=== PATIENT | female | born 1945 | race Caucasian/White ===

== ENCOUNTER 2020-08-06 16:17 | Emergency (ER) | payer MEDICARE, OTHER, SELFPAY ==
--- NOTE | 2020-08-06 16:29 | ED.UPPEXIN ---
HPI - Extremity Injury (Upper) General Chief Complaint: Extremity Injury, Upper Stated Complaint: INJURED L FOREARM Time Seen by Provider: 08/06/20 16:29 Source: patient and RN notes reviewed Mode of arrival: ambulatory Limitations: no limitations History of Present Illness HPI narrative: 74-year-old female presents with concern for a wound on her left arm that has not been healing well. Reports she sustained the skin tear 18 days ago when she tripped at home and fell. She denies any musculoskeletal pain. Reports she has been covering the wound with a dressing. Reports the last dressing change was on Sunday, 2 days ago. She denies fever, redness surrounding the wound, swelling surrounding the wound. Denies purulent drainage from the wound. Reports her son is helping her take care of the wound. MD complaint: injury to: left and arm Related Data Allergies Allergy/AdvReac Type Severity Reaction Status Date / Time latex Allergy Mild rash Verified 05/19/20 14:52 Penicillins Allergy Mild Hives Verified 05/19/20 14:52 Review of Systems Review of Systems: Narrative: CONSTITUTIONAL: Denies malaise, chills, sweats, or fever. SKIN: Reports wound on left arm that is nonhealing. MUSCULOSKELETAL: Denies muscle skeletal pain NEUROLOGIC: Denies numbness, weakness. All systems reviewed & are unremarkable except as noted in HPI and below PMFSH Past Medical History Medical History (Updated 08/06/20 @ 17:03 by Letha Greco NP) Asymptomatic bilateral carotid artery stenosis Essential (primary) hypertension Other hyperlipidemia Recurrent major depressive disorder in remission Unspecified asthma, uncomplicated Vitamin D deficiency Social History Social History Smoking status: Former smoker Alcohol intake: current Comments At time of signature, agree with nursing past medical, surgical, social and family history. There is no relevant family history pertinent to the presenting complaint Exam Narrative: Exam Narrative: GENERAL: Well-appearing, well-nourished, and in no acute distress. HEAD: Normocephalic, atraumatic. EYES: PERRLA, conjunctivae clear ENT: Mucous membranes moist. NECK: Supple CHEST: No respiratory distress. Speaks in full sentences. HEART: Regular rate and rhythm. EXTREMITIES: Left upper extremity has grossly normal range of motion, no edema, normal strength and sensation. SKIN: Warm, dry, no rash. 8 cm x 6 cm skin tear with beefy red tissue bed noted to the lateral left forearm without surrounding erythema, induration, edema. No purulent drainage noted. Small amount of bleeding noted due to removing adhered dressing. NEURO: Alert and oriented x3. PSYCH: Normal mood and affect Course Course Emergency Course: At the time of presentation, wound was dressed with ABDs and an Jett bandage. The ABDs were adhered to the wound. The ABDs were saturated with saline, glycerin based soap, let gel for anesthesia and slowly gently removed. Patient was instructed on importance of using nonadherent dressing for wound care. Wound dressed in this clinic with Maite Humphrey Coban. Patient is aware of diagnosis, understands and agrees to treatment plan. Anticipatory guidance given. Patient agrees to follow-up as directed and is aware of reasons to seek care at the emergency department. Portions of this record may have been created with voice recognition software Vital Signs Vital signs: Vital Signs Temperature 97.4 F L 08/06/20 16:30 Pulse Rate 101 H 08/06/20 16:30 Respiratory Rate 20 08/06/20 16:30 Blood Pressure 139/58 L 08/06/20 16:30 Pulse Oximetry 98 08/06/20 16:30 Temperature 97.4 F L 08/06/20 16:30 Pulse Rate 101 H 08/06/20 16:30 Respiratory Rate 20 08/06/20 16:30 Blood Pressure 139/58 L 08/06/20 16:30 Pulse Oximetry 98 08/06/20 16:30 Reviewed. MDM - Extremity Injury (Upper) MDM Narrative Medical decision making narrative
[2020-08-06 16:30] VITALS: BP 139/58; PULSE 101; RESP 20; TEMP 36.3; O2SAT 98
== END 2020-08-06 17:15 | disposition home or self-care (01) ==
PROVIDERS: Emergency Provider Nurse Practitioner; PCP Nurse Practitioner Family
DX: S51.812A Laceration without foreign body of left forearm, initial encounter (principal); W01.0XXA Fall on same level from slipping, tripping and stumbling without subsequent striking against object, initial encounter; Z87.891 Personal history of nicotine dependence; I10 Essential (primary) hypertension; J45.909 Unspecified asthma, uncomplicated; E78.49 Other hyperlipidemia; I25.10 Atherosclerotic heart disease of native coronary artery without angina pectoris
CPT/HCPCS: 99213; A9270; G0463

== ENCOUNTER 2022-01-26 15:38 | Outpatient (CLI) | payer MEDICARE, SELFPAY ==
[2022-01-26 20:06] LABS: Basophils Absolute Auto 0.1 K/mm3 (0.0-0.1); Basophils Percent Auto 0.5 % (0.2-1.2); Eosinophils Absolute Auto 0.3 K/mm3 (0-0.3); Eosinophils Percent Auto 2.6 % (0-4.4); Hematocrit 39.3 % (37.0-47.0); Hemoglobin 12.4 g/dL (12.0-15.0); Immature Granulocyte Absolute 0.05 K/mm3 (0.00-0.031); Immature Granulocyte Percent A 0.4 % (0-0.5); Lymphocytes Absolute Auto 2.29 K/mm3 (0.9-3.2); Lymphocytes Percent Auto 19.6 % (18.3-44.2); Mean Corpuscular HGB Conc 31.6 g/dl (32-36); Mean Corpuscular Hemoglobin 29.6 pg (26-34); Mean Corpuscular Volume 93.8 fl (80-100); Mean Platelet Volume 9.2 fl (7.4-10.4); Monocytes Percent Auto 8.3 % (2.6-8.5); Neutrophils Percent Auto 68.6 % (45.5-73.1); Platelet Count Result 520 k/mm3 (150-375); Red Blood Count 4.19 M/mm3 (4.2-5.4); Red Cell Distribution Width 14.7 % (11.5-14.5); White Blood Count 11.7 K/mm3 (4.5-10.0)
[2022-01-26 20:43] LABS: Alanine Aminotransferase 45 U/L (6-35); Albumin Level 4.3 g/dL (3.5-5.1); Alkaline Phosphatase 113 U/L (38-126); Anion Gap 14 mmol/L (8-16); Aspartate Amino Transferase 30 U/L (14-36); Bilirubin,Total 0.5 mg/dL (0.2-1.3); Blood Urea Nitrogen 17 mg/dL (7-17); Carbon Dioxide 23 mmol/L (22-30); Chloride 103 mmol/L (98-107); Cholesterol 197 mg/dL (0-200); Estimated Glomerular Filt Rate > 60; Glucose 110 mg/dL (65-110); HDL Direct 53 mg/dL; Potassium 4.2 mmol/L (3.4-5.0); Sodium 140 mmol/L (137-145); Triglycerides 76 mg/dL (<150)
[2022-01-26 20:54] LABS: LDL Cholesterol Direct 99 mg/dL
== END 2022-01-26 15:39 | disposition home or self-care (01) ==
LOC: ANHGOSHLAB 15:41
PROVIDERS: PCP Nurse Practitioner Family; Visit Provider Nurse Practitioner Family
DX: I10 Essential (primary) hypertension (principal); E78.5 Hyperlipidemia, unspecified
CPT/HCPCS: 36415; 80053; 80061; 85025

== ENCOUNTER 2022-09-20 16:47 | Outpatient (CLI) | payer MEDICARE, SELFPAY ==
--- NOTE | 2022-09-21 10:12 | PCRCNOTE ---
Paper documentation exists on this patient due to [employer] System downtime on 09/20/22 from [id number] to [id number]
--- NOTE | 2022-09-21 12:45 | WPDPFTINT ---
PFT Procedure Performed PFT Procedure Performed Spirometry with Pre/Post Bronchodilator Plethysmography (Lung Vol) Diffusing Cap (DLCO) Flow Vol Loop PFT Interpretation Lung volumes were measured with the body plethysmography method. The diminished uiaptc-xqt-vbaxq lung volumes are indicative of restrictive respiratory disease. Spirometry showed diminished expiratory flow rates and a normal FEV1 to FVC ratio of 69%, consistent with restrictive respiratory disease. Following administration of a bronchodilator there was borderline increase in the FEV1. Lung diffusion capacity is severely reduced at 39% predicted. The flow-volume loop is consistent with restrictive respiratory disease. Impression: Moderate restrictive respiratory disease. Severely reduced lung diffusion capacity.
--- NOTE | 2022-09-21 12:47 | WPDSIXMINUTE ---
Six Minute Walk Procedure Procedure Performed Pulmonary Stress Test (6 min walk) Six Minute Walk Six Minute Walk: This 6 minute walk test was carried out with the patient breathing ambient air. The pre-walk baseline oxyhemoglobin saturation was 95%. The patient walked over 152 m with no stops during testing. During the walk the oxyhemoglobin saturation remained higher than 91%. Impression: No evidence of oxyhemoglobin desaturation on this test.
== END 2022-09-20 16:48 | disposition home or self-care (01) ==
LOC: ANHPFT 16:48
PROVIDERS: PCP Nurse Practitioner Family; Visit Provider Internal Medicine Critical Care Medicine
DX: J45.909 Unspecified asthma, uncomplicated (principal); R94.2 Abnormal results of pulmonary function studies
CPT/HCPCS: 94060; 94618; 94726; 94729

== ENCOUNTER 2022-10-02 11:55 | Outpatient (CLI) | payer MEDICARE, SELFPAY ==
--- NOTE | ~2022-10-02 | XR_ITS ---
XR chest 2V DATE: 10/02/2022 12:36 INDICATION: Asthma TECHNIQUE: PA and lateral views COMPARISON: 11/27/2011 CT pulmonary scan FINDINGS: Mild cardiomegaly, left ventricular enlargement. Aortic calcification and unfolding. No hil ar or mediastinal enlargement. Mild discoid atelectasis or scarring in the lower lung zones, greater on the left. No pulmonary conso lidation, pleural effusion, pulmonary vascular congestion or pneumothorax is detected. Osteopenia. Bilateral chronic rotator cuff atrophy. Degenerative spurring of the thoracic and lumbar spine. IMPRESSION: Mild bibasilar discoid atelectasis or scarring, greater on the left Mild cardiomegaly with left ventricular enlargement Aortic atherosclerosis Osteopenia Degenerative changes of the thoracic and lumbar spine Bilateral chronic rotator cuff atrophy Reviewed, dictated and finalized at location A.
[2022-10-02 12:38] LABS: Basophils Percent Auto 0.3 % (0.2-1.2); Eosinophils Absolute Auto 0.3 K/mm3 (0-0.3); Hematocrit 34.5 % (37.0-47.0); Hemoglobin 10.4 g/dL (12.0-15.0); Immature Granulocyte Absolute 0.06 K/mm3 (0.00-0.031); Immature Granulocyte Percent A 0.4 % (0-0.5); Lymphocytes Absolute Auto 1.59 K/mm3 (0.9-3.2); Lymphocytes Percent Auto 11.2 % (18.3-44.2); Mean Corpuscular HGB Conc 30.1 g/dl (32-36); Mean Corpuscular Volume 96.1 fl (80-100); Mean Platelet Volume 9.7 fl (7.4-10.4); Monocytes Absolute Auto 0.9 K/mm3 (0.1-0.6); Monocytes Percent Auto 6.2 % (2.6-8.5); Neutrophils Absolute Auto 11.4 K/mm3 (1.3-6.7); Neutrophils Percent Auto 79.9 % (45.5-73.1); Platelet Count Result 389 k/mm3 (150-375); Red Blood Count 3.59 M/mm3 (4.2-5.4); Red Cell Distribution Width 15.1 % (11.5-14.5); White Blood Count 14.2 K/mm3 (4.5-10.0)
== END 2022-10-02 11:56 | disposition home or self-care (01) ==
PROVIDERS: PCP Nurse Practitioner Family; Visit Provider Internal Medicine Critical Care Medicine
DX: J45.909 Unspecified asthma, uncomplicated (principal); I70.0 Atherosclerosis of aorta; M85.88 Other specified disorders of bone density and structure, other site; I51.7 Cardiomegaly
CPT/HCPCS: 36415; 71046; 85025

== ENCOUNTER 2022-10-12 13:24 | Outpatient (CLI) | payer MEDICARE, SELFPAY ==
--- NOTE | ~2022-10-12 | CT_ITS ---
EXAMINATION: CT diagnostic chest wo con DATE: 10/12/2022 14:11 INDICATION: Chronic cough TECHNIQUE: Computed tomography (CT) of the chest was performed without intravenous contrast. Automate d exposure control and iterative reconstruction technique were employed. Exam dose: 117.56 mGy-cm to diana exam DLP. COMPARISON: None FINDINGS: Heart size is within normal range. No thoracic aortic aneurysm. Minimal thoracic aortic chary cification. No hilar or mediastinal mass lesion or lymphadenopathy. Prominent discoid atelectasis or scarring in the lower lobes and to a lesser extent the dependent asp ect of the lingula and left upper lobe. No suspicious pulmonary mass lesion is noted. No bronchial ob struction is identified. There is evidence of cholelithiasis. No bile duct or pancreatic duct dilatation is evident. Normal morphology of the adrenal glands. Fusion of C6 and C7 vertebral bodies. Severe degenerative disc disease at C7-T1 and throughout the thoracic and included upper lumbar spine . No suspicious osteolytic or osteoblastic lesions are noted. IMPRESSION: Prominent discoid atelectasis infiltrate or scarring of the lower lobes Cholelithiasis Reviewed, dictated and finalized at Location A. Reviewed, dictated and finalized at location A.
[2022-10-12 15:10] LABS: Basophils Absolute Auto 0.1 K/mm3 (0.0-0.1); Basophils Percent Auto 0.5 % (0.2-1.2); Eosinophils Absolute Auto 0.4 K/mm3 (0-0.3); Eosinophils Percent Auto 3.7 % (0-4.4); Hematocrit 35.9 % (37.0-47.0); Hemoglobin 10.9 g/dL (12.0-15.0); Immature Granulocyte Absolute 0.05 K/mm3 (0.00-0.031); Immature Granulocyte Percent A 0.5 % (0-0.5); Lymphocytes Percent Auto 26.6 % (18.3-44.2); Mean Corpuscular HGB Conc 30.4 g/dl (32-36); Mean Corpuscular Hemoglobin 29.6 pg (26-34); Mean Corpuscular Volume 97.6 fl (80-100); Mean Platelet Volume 9.9 fl (7.4-10.4); Monocytes Absolute Auto 0.6 K/mm3 (0.1-0.6); Monocytes Percent Auto 6.4 % (2.6-8.5); Neutrophils Absolute Auto 5.9 K/mm3 (1.3-6.7); Neutrophils Percent Auto 62.3 % (45.5-73.1); Platelet Count Result 393 k/mm3 (150-375); Red Blood Count 3.68 M/mm3 (4.2-5.4); Red Cell Distribution Width 14.6 % (11.5-14.5); White Blood Count 9.4 K/mm3 (4.5-10.0)
== END 2022-10-12 13:25 | disposition home or self-care (01) ==
LOC: ANHIMG 13:29
PROVIDERS: PCP Nurse Practitioner Family; Visit Provider Nurse Practitioner Family
DX: R05.3 Chronic cough (principal); J45.909 Unspecified asthma, uncomplicated; K80.20 Calculus of gallbladder without cholecystitis without obstruction
CPT/HCPCS: 36415; 71250; 85025

== ENCOUNTER 2023-01-26 14:18 | Outpatient (CLI) | payer MEDICARE, SELFPAY ==
[2023-01-26 18:49] LABS: Basophils Absolute Auto 0.1 K/mm3 (0.0-0.1); Basophils Percent Auto 0.7 % (0.2-1.2); Eosinophils Absolute Auto 0.3 K/mm3 (0-0.3); Eosinophils Percent Auto 4.6 % (0-4.4); Hematocrit 36.3 % (37.0-47.0); Immature Granulocyte Absolute 0.03 K/mm3 (0.00-0.031); Immature Granulocyte Percent A 0.4 % (0-0.5); Lymphocytes Percent Auto 29.6 % (18.3-44.2); Mean Corpuscular HGB Conc 30.3 g/dl (32-36); Mean Corpuscular Hemoglobin 29.6 pg (26-34); Mean Corpuscular Volume 97.8 fl (80-100); Mean Platelet Volume 9.8 fl (7.4-10.4); Monocytes Absolute Auto 0.6 K/mm3 (0.1-0.6); Monocytes Percent Auto 8.5 % (2.6-8.5); Neutrophils Absolute Auto 4.2 K/mm3 (1.3-6.7); Neutrophils Percent Auto 56.2 % (45.5-73.1); Platelet Count Result 413 k/mm3 (150-375); Red Blood Count 3.71 M/mm3 (4.2-5.4); White Blood Count 7.4 K/mm3 (4.5-10.0)
[2023-01-26 19:01] LABS: Iron 128 ug/dL (37-170)
[2023-01-26 19:06] LABS: Alanine Aminotransferase 16 U/L (6-35); Albumin Level 4.1 g/dL (3.5-5.1); Alkaline Phosphatase 72 U/L (38-126); Anion Gap 3 mmol/L (8-16); Aspartate Amino Transferase 37 U/L (14-36); Bilirubin,Total 0.5 mg/dL (0.2-1.3); Blood Urea Nitrogen 19 mg/dL (7-17); Calcium 9.6 mg/dL (8.4-10.2); Carbon Dioxide 26 mmol/L (22-30); Chloride 112 mmol/L (98-107); Cholesterol 240 mg/dL (0-200); Estimated Glomerular Filt Rate 43; Glucose 93 mg/dL (65-110); HDL Direct 45 mg/dL; Potassium 4.4 mmol/L (3.4-5.0); Sodium 141 mmol/L (137-145); Triglycerides 108 mg/dL (<150)
[2023-01-26 19:10] LABS: Percent Iron Saturation 54 % (20-50)
[2023-01-26 19:57] LABS: Folic Acid 18.7 ng/mL (2.76->20)
[2023-01-26 21:10] LABS: LDL Cholesterol Direct 130 mg/dL
== END 2023-01-26 14:19 | disposition home or self-care (01) ==
LOC: ANHGOSHLAB 14:20
PROVIDERS: PCP Nurse Practitioner Family; Visit Provider Family Medicine
DX: E78.5 Hyperlipidemia, unspecified (principal); D64.9 Anemia, unspecified; E55.9 Vitamin D deficiency, unspecified; I10 Essential (primary) hypertension
CPT/HCPCS: 36415; 80053; 80061; 82306; 82607; 82728; 82746; 83540; 83550; 84443; 85025

== ENCOUNTER 2023-03-06 11:27 | Outpatient (CLI) | payer MEDICARE, SELFPAY ==
[2023-03-06 11:58] LABS: Basophils Percent Auto 0.4 % (0.2-1.2); Eosinophils Absolute Auto 0.5 K/mm3 (0-0.3); Eosinophils Percent Auto 4.2 % (0-4.4); Hematocrit 35.1 % (37.0-47.0); Hemoglobin 10.8 g/dL (12.0-15.0); Immature Granulocyte Absolute 0.07 K/mm3 (0.00-0.031); Immature Granulocyte Percent A 0.7 % (0-0.5); Immature Reticulocyte Fraction 14.3 % (3.0-15.9); Lymphocytes Absolute Auto 1.85 K/mm3 (0.9-3.2); Lymphocytes Percent Auto 17.4 % (18.3-44.2); Mean Corpuscular HGB Conc 30.8 g/dl (32-36); Mean Corpuscular Hemoglobin 29.8 pg (26-34); Mean Corpuscular Volume 96.7 fl (80-100); Mean Platelet Volume 9.1 fl (7.4-10.4); Monocytes Absolute Auto 0.8 K/mm3 (0.1-0.6); Monocytes Percent Auto 7.4 % (2.6-8.5); Neutrophils Absolute Auto 7.4 K/mm3 (1.3-6.7); Neutrophils Percent Auto 69.9 % (45.5-73.1); Platelet Count Result 374 k/mm3 (150-375); Red Blood Count 3.63 M/mm3 (4.2-5.4); Red Cell Distribution Width 14.2 % (11.5-14.5); Reticulocyte Hemoglobin Conten 31.1 pg (28.2-35.7); Reticulocyte Percent 1.63 % (0.7-4.3); Reticulocytes Absolute 0.06 M/mm3 (0.02-0.1); White Blood Count 10.6 K/mm3 (4.5-10.0)
[2023-03-06 12:34] LABS: Alanine Aminotransferase 17 U/L (6-35); Albumin Level 4.2 g/dL (3.5-5.1); Alkaline Phosphatase 76 U/L (38-126); Anion Gap 8 mmol/L (8-16); Aspartate Amino Transferase 27 U/L (14-36); Bilirubin,Total 0.5 mg/dL (0.2-1.3); Blood Urea Nitrogen 19 mg/dL (7-17); Calcium 9.4 mg/dL (8.4-10.2); Carbon Dioxide 24 mmol/L (22-30); Chloride 109 mmol/L (98-107); Estimated Glomerular Filt Rate 43; Glucose 92 mg/dL (65-110); Lactate Dehydrogenase 162 U/L (120-246); Potassium 3.8 mmol/L (3.4-5.0); Sodium 141 mmol/L (137-145)
[2023-03-06 13:40] LABS: Folic Acid 17.1 ng/mL (2.76->20)
[2023-03-06 13:57] LABS: Iron 57 ug/dL (37-170)
[2023-03-06 14:11] LABS: Percent Iron Saturation 25 % (20-50)
[2023-03-09 05:06] LABS: Methylmalonic Acid 231 nmol/L (87-318)
[2023-03-10 18:41] LABS: Soluble Transferrin Receptor 1.34 mg/L (0.76-1.76)
== END 2023-03-06 11:28 | disposition home or self-care (01) ==
PROVIDERS: Nurse Practitioner Family; PCP Family Medicine; Visit Provider Internal Medicine Hematology & Oncology
DX: D64.9 Anemia, unspecified (principal)
CPT/HCPCS: 36415; 80053; 82607; 82728; 82746; 83540; 83550; 83615; 83921; 84238; 85025; 85046

== ENCOUNTER 2023-07-23 13:00 | Outpatient (CLI) | payer MEDICARE, SELFPAY ==
[2023-07-23 13:18] LABS: Basophils Absolute Auto 0.1 K/mm3 (0.0-0.1); Basophils Percent Auto 0.7 % (0.2-1.2); Eosinophils Absolute Auto 0.2 K/mm3 (0-0.3); Eosinophils Percent Auto 2.1 % (0-4.4); Hematocrit 37.6 % (37.0-47.0); Hemoglobin 11.8 g/dL (12.0-15.0); Immature Granulocyte Absolute 0.06 K/mm3 (0.00-0.031); Immature Granulocyte Percent A 0.5 % (0-0.5); Lymphocytes Absolute Auto 2.28 K/mm3 (0.9-3.2); Lymphocytes Percent Auto 20.3 % (18.3-44.2); Mean Corpuscular HGB Conc 31.4 g/dl (32-36); Mean Corpuscular Hemoglobin 30.3 pg (26-34); Mean Corpuscular Volume 96.4 fl (80-100); Mean Platelet Volume 8.8 fl (7.4-10.4); Monocytes Absolute Auto 0.8 K/mm3 (0.1-0.6); Monocytes Percent Auto 7.5 % (2.6-8.5); Neutrophils Absolute Auto 7.7 K/mm3 (1.3-6.7); Neutrophils Percent Auto 68.9 % (45.5-73.1); Platelet Count Result 381 k/mm3 (150-375); Red Cell Distribution Width 13.4 % (11.5-14.5); White Blood Count 11.2 K/mm3 (4.5-10.0)
[2023-07-23 13:25] LABS: Blood Urea Nitrogen 25 mg/dL (8-26); Carbon Dioxide 27 mmol/L (22-30); Chloride 109 mmol/L (98-109); Estimated Glomerular Filt Rate 31; Glucose 89 mg/dL (70-105); Ionized Calcium (POC) 1.23 mmol/L (1.11-1.31); Potassium 4.1 mmol/L (3.5-4.9); Sodium 145 mmol/L (138-146)
== END 2023-07-23 13:01 | disposition home or self-care (01) ==
LOC: ANHLAB 13:04
PROVIDERS: Nurse Practitioner Family; PCP Family Medicine; Visit Provider Internal Medicine Hematology & Oncology
DX: D64.9 Anemia, unspecified (principal)
CPT/HCPCS: 36415; 80047; 85025

== ENCOUNTER 2023-10-25 12:56 | Outpatient (CLI) | payer MEDICARE, SELFPAY ==
[2023-10-25 13:15] LABS: Basophils Absolute Auto 0.1 K/mm3 (0.0-0.1); Basophils Percent Auto 0.6 % (0.2-1.2); Eosinophils Absolute Auto 0.4 K/mm3 (0-0.3); Eosinophils Percent Auto 4.7 % (0-4.4); Hematocrit 36.5 % (37.0-47.0); Hemoglobin 11.4 g/dL (12.0-15.0); Immature Granulocyte Absolute 0.03 K/mm3 (0.00-0.031); Immature Granulocyte Percent A 0.4 % (0-0.5); Lymphocytes Absolute Auto 1.95 K/mm3 (0.9-3.2); Lymphocytes Percent Auto 25.3 % (18.3-44.2); Mean Corpuscular HGB Conc 31.2 g/dl (32-36); Mean Corpuscular Hemoglobin 29.6 pg (26-34); Mean Corpuscular Volume 94.8 fl (80-100); Mean Platelet Volume 9.3 fl (7.4-10.4); Monocytes Absolute Auto 0.7 K/mm3 (0.1-0.6); Monocytes Percent Auto 9.6 % (2.6-8.5); Neutrophils Absolute Auto 4.6 K/mm3 (1.3-6.7); Neutrophils Percent Auto 59.4 % (45.5-73.1); Platelet Count Result 357 k/mm3 (150-375); Red Blood Count 3.85 M/mm3 (4.2-5.4); Red Cell Distribution Width 13.1 % (11.5-14.5); White Blood Count 7.7 K/mm3 (4.5-10.0)
[2023-10-25 13:19] LABS: Blood Urea Nitrogen 21 mg/dL (8-26); Carbon Dioxide 23 mmol/L (22-30); Chloride 109 mmol/L (98-109); Estimated Glomerular Filt Rate 31; Glucose 89 mg/dL (70-105); Ionized Calcium (POC) 1.25 mmol/L (1.11-1.31); Potassium 4.3 mmol/L (3.5-4.9); Sodium 142 mmol/L (138-146)
== END 2023-10-25 12:57 | disposition home or self-care (01) ==
LOC: ANHLAB 12:58
PROVIDERS: Nurse Practitioner Family; PCP Family Medicine; Visit Provider Internal Medicine Hematology & Oncology
DX: D64.9 Anemia, unspecified (principal)
CPT/HCPCS: 36415; 80047; 85025

== ENCOUNTER 2024-02-19 14:22 | Outpatient (CLI) | payer MEDICARE, SELFPAY ==
[2024-02-19 19:34] LABS: Alanine Aminotransferase 21 U/L (6-35); Albumin Level 4.1 g/dL (3.5-5.1); Alkaline Phosphatase 89 U/L (38-126); Anion Gap 6 mmol/L (4-12); Aspartate Amino Transferase 47 U/L (14-36); Bilirubin,Total 0.7 mg/dL (0.2-1.3); Blood Urea Nitrogen 13 mg/dL (7-17); Calcium 9.3 mg/dL (8.4-10.2); Carbon Dioxide 28 mmol/L (22-30); Chloride 109 mmol/L (98-107); Cholesterol 199 mg/dL (0-200); Estimated Glomerular Filt Rate 48; Glucose 101 mg/dL (65-110); HDL Direct 44 mg/dL; Potassium 4.3 mmol/L (3.4-5.0); Sodium 143 mmol/L (137-145); Triglycerides 126 mg/dL (<150)
[2024-02-19 19:42] LABS: Basophils Absolute Auto 0.1 K/mm3 (0.0-0.1); Basophils Percent Auto 0.5 % (0.2-1.2); Eosinophils Absolute Auto 0.4 K/mm3 (0-0.3); Eosinophils Percent Auto 3.3 % (0-4.4); Hematocrit 36.6 % (37.0-47.0); Hemoglobin 11.3 g/dL (12.0-15.0); Immature Granulocyte Absolute 0.03 K/mm3 (0.00-0.031); Immature Granulocyte Percent A 0.3 % (0-0.5); Lymphocytes Absolute Auto 3.54 K/mm3 (0.9-3.2); Lymphocytes Percent Auto 31.9 % (18.3-44.2); Mean Corpuscular HGB Conc 30.9 g/dl (32-36); Mean Corpuscular Hemoglobin 29.5 pg (26-34); Mean Corpuscular Volume 95.6 fl (80-100); Mean Platelet Volume 10.1 fl (7.4-10.4); Monocytes Absolute Auto 0.7 K/mm3 (0.1-0.6); Monocytes Percent Auto 6.6 % (2.6-8.5); Neutrophils Absolute Auto 6.4 K/mm3 (1.3-6.7); Neutrophils Percent Auto 57.4 % (45.5-73.1); Platelet Count Result 382 k/mm3 (150-375); Red Blood Count 3.83 M/mm3 (4.2-5.4); Red Cell Distribution Width 14.3 % (11.5-14.5); White Blood Count 11.1 K/mm3 (4.5-10.0)
[2024-02-19 19:45] LABS: LDL Cholesterol Direct 107 mg/dL
[2024-02-19 21:34] LABS: Hemoglobin A1C 5.4 % (<5.7)
[2024-02-23 12:54] LABS: Vitamin D 1,25 (OH)2 Total 27 pg/mL (18-72); Vitamin D2 1,25 (OH)2 <8 pg/mL; Vitamin D3 1,25 (OH)2 27 pg/mL
== END 2024-02-19 14:23 | disposition home or self-care (01) ==
PROVIDERS: PCP Family Medicine; Visit Provider Nurse Practitioner Family
DX: E55.9 Vitamin D deficiency, unspecified (principal); I10 Essential (primary) hypertension; E53.8 Deficiency of other specified B group vitamins; R73.9 Hyperglycemia, unspecified
CPT/HCPCS: 36415; 80053; 80061; 82607; 82652; 83036; 84443; 85025

== ENCOUNTER 2024-04-16 14:18 | Outpatient (CLI) | payer MEDICARE, SELFPAY ==
[2024-04-16 14:33] LABS: Basophils Absolute Auto 0.1 K/mm3 (0.0-0.1); Basophils Percent Auto 0.8 % (0.2-1.2); Eosinophils Absolute Auto 0.3 K/mm3 (0-0.3); Eosinophils Percent Auto 3.7 % (0-4.4); Hematocrit 33.2 % (37.0-47.0); Hemoglobin 10.4 g/dL (12.0-15.0); Immature Granulocyte Absolute 0.04 K/mm3 (0.00-0.031); Immature Granulocyte Percent A 0.5 % (0-0.5); Lymphocytes Percent Auto 22.6 % (18.3-44.2); Mean Corpuscular HGB Conc 31.3 g/dl (32-36); Mean Corpuscular Volume 92.5 fl (80-100); Mean Platelet Volume 8.9 fl (7.4-10.4); Monocytes Absolute Auto 0.7 K/mm3 (0.1-0.6); Monocytes Percent Auto 8.3 % (2.6-8.5); Neutrophils Absolute Auto 5.4 K/mm3 (1.3-6.7); Neutrophils Percent Auto 64.1 % (45.5-73.1); Platelet Count Result 385 k/mm3 (150-375); Red Blood Count 3.59 M/mm3 (4.2-5.4); Red Cell Distribution Width 15.5 % (11.5-14.5); White Blood Count 8.4 K/mm3 (4.5-10.0)
[2024-04-16 14:37] LABS: Blood Urea Nitrogen 17 mg/dL (8-26); Carbon Dioxide 24 mmol/L (22-30); Chloride 108 mmol/L (98-109); Estimated Glomerular Filt Rate 36; Glucose 85 mg/dL (70-105); Ionized Calcium (POC) 1.22 mmol/L (1.11-1.31); Sodium 142 mmol/L (138-146)
== END 2024-04-16 14:19 | disposition home or self-care (01) ==
LOC: ANHLAB 14:19
PROVIDERS: PCP Family Medicine; Visit Provider Internal Medicine Hematology & Oncology
DX: D64.9 Anemia, unspecified (principal)
CPT/HCPCS: 36415; 80047; 85025

== ENCOUNTER 2024-08-14 14:25 | Outpatient (CLI) | payer MEDICARE, SELFPAY ==
--- OUTSIDE RECORDS SUMMARY | 2024-08-14 14:29 | XMS_ITS | Clinical Summary ---
Author Organization [facility] Michaela Conroy Address [facility] [place] [address] Care Team Providers Care Diamond Sander Name Role Phone Lidia Maxwell MD Primary Care Provider Allergies Active Allergy Reactions Criticality Noted Date Comments Penicillins Unknown 01/25/2022 As a child Medications DULoxetine (CYMBALTA) 20 mg Capsule, Delayed Release(E.C.) Take 20 mg by mouth daily. Active fluticasone propionate (FLONASE) 50 mcg/spray [place], Suspension nasal inhaler Administer 1 [place] in each nostril daily. Active lisinopriL (PRINIVIL) 40 mg tablet Take 40 mg by mouth daily. Active montelukast (SINGULAIR) 10 mg tablet Take 10 mg by mouth. Active traZODone (DESYREL) 50 mg tablet Take 50 mg by mouth. Active fluticasone-ume clidinium-vilan terol (Trelegy Ellipta) 100-62.5-25 mcg Disk with Device Take 1 Puff by inhalation daily. Active calcium citrate-vitamin d3 (CITRACAL D MAX) 315 mg-6.25 mcg (250 unit) Tablet Take by mouth daily. Active omega-3 fatty acids-fish oil 300-1,000 mg Capsule Take by mouth daily. Active multivitamin (DAILY-ADRIEN) tablet Take 1 Tablet by mouth daily. Active Active Problems No known active problems Encounters Date Type Department Care Team Description 05/27/2024 External Device Data STL ABSTRACTION Provider, Abstract from Last 3 Months Family History Medical History Relation Name Comments Heart Disease Son 1 Relation Name Status Comments Son 1 Alive Son 2 Social History Tobacco Use Types Packs/Day Years Used Date Smoking Tobacco: Never Smokeless Tobacco: Never Tobacco Cessation:Counseling Given: Not Answered Alcohol Use Standard Drinks/Week Comments Yes 0 (1 standard drink = 0.6 oz pur e alcohol) occasional Comments Unknown Sex and Gender Information Value Date Recorded Sex Assigned at Not on file Legal Sex Female 4:06 PM CDT Gender Identity Not on file Sexual Orientation Not on file Last Filed Vital Signs Vital Sign Reading Time Taken Comments Blood Pressure 142/75 04/16/2024 2:39 PM TOOL DRESSER Pulse 83 04/16/2024 2:39 PM TOOL DRESSER Temperature 35.7 C (96.3 F) 04/16/2024 2:39 PM TOOL DRESSER Respiratory Rate 16 04/16/2024 2:39 PM TOOL DRESSER Oxygen Saturation 92% 04/16/2024 2:39 PM TOOL DRESSER Inhaled Oxygen Concentration - - Weight 61.2 kg (135 lb) 04/16/2024 2:39 PM TOOL DRESSER Height 149.9 cm (4' 11 ) 03/06/2023 10:22 AM TOOL DRESSER Body Mass Index 27.27 03/06/2023 10:22 AM TOOL DRESSER Plan of Treatment Upcoming Encounters Date Type Department Care Team (Late st Contact Info) Description 08/14/2024 2:45 PM CDT Office Visit [facility] Oncology and Hematology - [address] [facility] [address] [place] [address] Daniele Turner MD [address] [facility] [address] [place] [address] Health Maintenance Due Date Last Done Comments DTAP/TDAP/TD VACCINES (1 - Tdap) 09/07/1962 PNEUMOCOCCAL VACCINE 50+ YEARS (1 of 1 - PCV) 09/07/18 94 ZOSTER VACCINE (1 of 2) 09/07/1993 OSTEOPOROSIS SCREENING 09/07/2008 RSV VACCINE (60+ or ) (1 - 1-dose 75+ series) 09/07/2018 INFLUENZA VACCINE (#1) 2023 Medicare Advantage ([place]) Prev entative Visit/Annual Wellness Visit 04/09/2024 [facility] [id number] Care Teams Diamond Sander Relationship Specialty Start Date End Date Lidia Maxwell MD [address] [place] [id number] PCP - General Family Practice 03/06/23
--- OUTSIDE RECORDS SUMMARY | 2024-08-14 14:29 | XMS_ITS | Clinical Summary ---
Author Organization [facility] Address [facility] [place] [address] Care Team Providers Care Chair Mender Name Role Phone Vidya Tristan Ann SUPERVISOR [employer]WING DEPARTMENT Primary Care Provider [phone] Allergies Active Allergy Reactions Criticality Noted Date Comments Penicillins Unknown 01/25/2022 As a child Medications lisinopril (PRINIVIL) 40 MG tablet Take 40 mg by mouth daily. Active FLUoxetine (PROZAC) 20 MG capsule Take 60 mg by mouth daily. Active traZODone (DESYREL) 50 MG tablet Take 50 mg by mouth nightly at bedtime. Active montelukast (SINGULAIR) 10 MG tablet Take 10 mg by mouth nightly at bedtime. Active fluticasone propionate (FLONASE) 50 MCG/ACT nasal spray 1 spray by Nasal route daily. Active fluticasone-stephanie meterol (ADVAIR DISKUS) 500-50 MCG/ACT inhaler Inhale 1 puff into the lungs 2 (two) times daily. Active DULoxetine (CYMBALTA) 20 MG capsule Take 20 mg by mouth daily. Dose unknown Active Active Problems No known active problems Social History Tobacco Use Types Packs/Day Years Used Date Smoking Tobacco: Never Smokeless Tobacco: Never Alcohol Use Standard Drinks/Week Comments Yes 0 (1 standard drink = 0.6 oz pur e alcohol) 3-4 drinks a week Comments No Sex and Gender Information Value Date Recorded Sex Assigned at Not on file Legal Sex Female 2:06 PM CDT Gender Identity Not on file Sexual Orientation Not on file Last Filed Vital Signs Vital Sign Reading Time Taken Comments Blood Pressure 123/52 01/30/2022 12:22 PM CDT Pulse 90 01/30/2022 12:22 PM CDT Temperature 36.1 C (96.9 F) 01/30/2022 10:20 AM CDT Respiratory Rate 20 01/30/2022 12:22 PM CDT Oxygen Saturation 96% 01/30/2022 12:22 PM CDT Inhaled Oxygen Concentration - - Weight 52.2 kg (115 lb) 01/30/2022 10:20 AM CDT Height 149.9 cm (4' 11 ) 01/30/2022 10:20 AM CDT Body Mass Index 23.23 01/30/2022 10:20 AM CDT Plan of Treatment Health Maintenance Due Date Last Done Comments DTaP, Tdap and Td Vaccines ( 1 - Tdap) 09/07/1962 Pneumococcal Vaccine: 50+ Years (1 of 1 - PCV) 09/07/1993 Zoster Vaccines (1 of 2) 09/07/1993 Annual Medicare Wellness Visit 09/07/2008 Dexa Scan (General) 09/07/2008 RSV Immunization or 60+ Years (1 - 1-dose 75+ series) 09/07/2018 COVID-19 Vaccine (3 - 2023-2 5 season) 2023 07/27/2020, 07/06/2020 Meningococcal B Vaccine Aged Out No l onger eligible based on patient's age to complete this topic Meningococcal Vaccine Aged Out No misael aye eligible based on patient's age to complete this topic RSV Immunizations Under 20 Months Aged Out No longer eligible b ased on patient's age to complete this topic Medical Devices Implanted Type Area Sprayer Automatic Spray Machine Device Identifier Shelf Expiration Date Model / Serial / Lot Iol Clune Precision [id number] - [id number] Implanted:Qty: 1 on 01/30/2022 by Jhony Segal MD at [facility] Lens Right: Eye [employer] [id number] 06/22/2023 [id number] / [id number] / Insurance MEDICARE [facility] [place] [id number] Care Teams Chair Mender Relationship Specialty Start Date End Date Vidya Tristan FNP [facility] [address] [place] [id number] PCP - General Nurse Practitioner Family 01/30/22
[2024-08-14 14:47] LABS: Hematocrit 36.4 % (37.0-47.0); Hemoglobin 11.5 g/dL (12.0-15.0); Mean Corpuscular HGB Conc 31.6 g/dl (32-36); Mean Corpuscular Hemoglobin 29.9 pg (26-34); Mean Corpuscular Volume 94.5 fl (80-100); Mean Platelet Volume 9.4 fl (7.4-10.4); Platelet Count Result 303 k/mm3 (150-375); Red Blood Count 3.85 M/mm3 (4.2-5.4); Red Cell Distribution Width 13.6 % (11.5-14.5); White Blood Count 7.3 K/mm3 (4.5-10.0)
[2024-08-14 14:50] LABS: Blood Urea Nitrogen 33 mg/dL (8-26); Carbon Dioxide 23 mmol/L (22-30); Chloride 109 mmol/L (98-109); Estimated Glomerular Filt Rate 29; Glucose 100 mg/dL (70-105); Ionized Calcium (POC) 1.22 mmol/L (1.11-1.31); Potassium 4.6 mmol/L (3.5-4.9); Sodium 142 mmol/L (138-146)
[2024-08-14 17:12] LABS: Iron 111 ug/dL (37-170)
[2024-08-14 17:23] LABS: Percent Iron Saturation 43 % (20-50)
[2024-08-14 18:38] LABS: Folic Acid 19.9 ng/mL (2.76->20); Vitamin B12 > 1000.0 pg/mL (239-931)
== END 2024-08-14 14:26 | disposition home or self-care (01) ==
LOC: ANHLAB 14:26
PROVIDERS: PCP Family Medicine; Visit Provider Internal Medicine Hematology & Oncology
DX: D64.9 Anemia, unspecified (principal)
CPT/HCPCS: 36415; 80047; 82607; 82728; 82746; 83540; 83550; 85027

== ENCOUNTER 2025-02-13 13:44 | Outpatient (CLI) | payer MEDICARE, SELFPAY ==
--- NOTE | ~2025-02-13 | DEXA_ITS ---
Bone Density Report Name: ELSI GERMAN Age: 79 Sex: Female Ethnicity: White Date of : 1945 Indication: postmenopausal; screening for osteoporosis; parental hip fracture; height loss; prior fracture; asthma or emphysema; Referring Provider: Isaías Maxwell Study: Bone densitometry was performed. Exam Date: February 13, 2025 Accession number: [id number] Bone Density: Region BMD T-score Z-score Classification AP Spine(L1-L4) 1.280 2.1 4.9 Normal Femoral Neck (Left) 0.509 -3.1 -0.7 Osteoporosis Total Hip (Left) 0.632 -2.5 -0.4 Osteoporosis Femoral Neck (Right) 0.544 -2.7 -0.4 Osteoporosis Total Hip (Right) 0.617 -2.7 -0.5 Osteoporosis Total Hip Mean 0.625 -2.6 -0.5 Osteoporosis World Health Organization criteria for BMD impression classify patients as: Normal (T-score at or above -1.0), Osteopenia (T-score between -1.0 and -2.5), or Osteoporosis (T-score at or below -2.5). 10-year Fracture Risk: FRAX not reported because: Some T-score for Spine Total or Hip Total or Femoral Neck at or below -2.5 Clinical Information Provided by Patient: Has had a low trauma fracture Parent has had a hip fracture Has used the following medications: HRT (i.e. estrogen/hormone therapy), Vitamin D, Calcium Has the following medical conditions: Asthma or Emphysema Patient maximum height was 62 No regular weight bearing exercise Does not regularly consume dairy products Drinks caffeinated beverages Onset of menses at age 7 Number of children 2 Impression: The patient has established osteoporosis, based on the Left Femoral Neck T-score and the existence of a prior fracture. The patient has risk factors, including: parental hip fracture, previous fracture. Discussion: HIGH RISK OF FRACTURE. BONE DENSITY IS UNDESIRABLY LOW AT ONE OR MORE SKELETAL SITES, CONSISTENT WITH POSTMENOPAUSAL OSTEOPOROSIS. This patient's lowest T-score, in a patient who has previously fractured, meets the World Health Organization's (WHO) criteria for severe osteoporosis. In untreated patients, the risk of osteoporotic fracture increases approximately two-fold for each 1.0 SD decrease in T-score. Low bone density is not the only risk factor for fracture; also consider factors such as patient's age, frailty or poor health, risk of falling, risk of injury, previous osteoporotic fracture, family history of osteoporosis, cigarette smoking, low body weight, etc. Not everyone with low bone mineral density has osteoporosis; osteomalacia and other metabolic bone disorders should also be considered. Patients who have osteoporosis should be evaluated for specific diseases and conditions (secondary causes) that may cause or contribute to bone loss. The [place] Association of Clinical Endocrinologists (AACE) and National Osteoporosis Foundation (NOF) recommend pharmacologic intervention for all postmenopausal women whose T-score is in this range. The patient should follow a healthful lifestyle (good nutrition with adequate calcium and vitamin D, and appropriate weight-bearing exercise). Follow-Up: Consider a repeat BMD and Vertebral Fracture Assessment (VFA) exam in 2 years or sooner if medically necessary, to reassess this patient's status. Reported by: NEVILLE on 02/13/2025 2:39:00 PM. Reviewed, dictated and finalized at location A.
--- NOTE | ~2025-02-13 | MM_ITS ---
EXAMINATION: MM screening karma BI w deana HISTORY: Screening TECHNIQUE: Craniocaudal and mediolateral oblique 3-D tomosynthesis images were obtained and synthetic 2-D images were generated. CAD analysis was submitted and interpreted. COMPARISON: No prior mammogram is available for comparison at this institution. BREAST PARENCHYMAL COMPOSITION: Not dense: There are scattered areas of fibroglandular density. FINDINGS: There is no evidence of suspicious mass, calcification, or architectural distortion to suggest malignancy in either breast. There has been no suspicious interval change. IMPRESSION: 1. No mammographic evidence of malignancy. 2. Recommend routine screening mammography in one year. BI-RADS Category 1: Negative Reviewed, dictated and finalized at location O. STERED VETERINARY TECHNICIAN
== END 2025-02-13 13:45 | disposition home or self-care (01) ==
LOC: MICIMG 13:45
PROVIDERS: PCP Family Medicine; Visit Provider Family Medicine
DX: Z12.31 Encounter for screening mammogram for malignant neoplasm of breast (principal); Z78.0 Asymptomatic menopausal state; M81.0 Age-related osteoporosis without current pathological fracture
CPT/HCPCS: 77063; 77067; 77080

== ENCOUNTER 2025-02-25 12:32 | Outpatient (CLI) | payer MEDICARE, SELFPAY ==
--- OUTSIDE RECORDS SUMMARY | 2025-02-25 17:53 | XMS_ITS | Clinical Summary ---
Author Organization [facility] Address [facility] [place] [address] Care Team Providers Care Farmworker Machine Name Role Phone Vidya Tristan Ann WIRELESS SALES REPRESENTATIVE Primary Care Provider [phone] Allergies Active Allergy Reactions Criticality Noted Date [...] 10:20 AM CDT Height 149.9 cm (4' 11) 01/30/2022 10:20 AM CDT Body Mass Index 23.23 01/30/2022 10:20 AM CDT Plan of Treatment Health Maintenance Due Date Last Done Comments DTaP, Tdap and Td Vaccines (1 - Tdap) 09/07/1962 Pneumococcal Vaccine: 50+ Years (1 of 1 - PCV) 09/07/1993 Zoster Vaccines (1 of 2) 09/07/1993 Annual Medicare Wellness Visit 09/07/2008 Dexa Scan (General) 09/07/2008 RSV Immunization or 60+ Years (1 - 1-dose 75+ series) 09/07/2018 COVID-19 Vaccine (3 - season) 2024 07/27/2020, 07/06/2020 Influenza Adult (#1) 2025 02/04/2020, 06/07/2019, 01/30/2018, Additional history exists Hepatitis A Vaccines Aged Out No long er eligible based on patient's age to complete this topic Meningococcal B Vaccine Aged Out No l onger eligible based on patient's age to complete this topic Meningococcal Vaccine Aged Out No misael aye eligible based on patient's age to complete this topic RSV Immunizations Under 20 Months Aged Out No longer eligible based on patient's age to complete this topic Medical Devices Implanted Type Area Veneer Puller Device Identifier Shelf Expiration Date Model / Serial / Lot Iol Missy Precision Zcb00 - [id number] Implanted:Qty: 1 on 01/30/2022 by Jhony Segal MD at [facility] Lens Right: Eye [employer] [id number] 06/22/2023 ZCB00 / [id number] / Insurance MEDICARE [facility] [place] [id number] Care Teams Farmworker Machine Relationship Specialty Start Date End Date Vidya Tristan FNP [facility] [address] [place] [id number] PCP - General Nurse Practitioner Family 01/30/22
--- OUTSIDE RECORDS SUMMARY | 2025-02-25 17:53 | XMS_ITS | Clinical Summary ---
Author Organization [facility] Michaela Conroy Address [address] [place] [address] Care Team Providers Care Director Of Oncology Name Role Phone Lidia Maxwell MD Primary Care Provider Allergies Active Allergy Reactions Criticality Noted Date Comments Penicillins Unknown 01/25/2022 As a child Medications DULoxetine (CYMBALTA) 20 mg Capsule, Delayed Release(E.C.) Take 20 mg by mouth daily. Active fluticasone propionate (FLONASE) 50 mcg/spray [place], Suspension nasal inhaler Administer 1 [place] in each nostril daily. Active lisinopriL (PRINIVIL) [...] Encounters Date Type Department Care Team Description 02/04/2025 External Device Data [facility] Provider, Abstract 02/03/2025 External Device Data [facility] Provider, Abstract 01/27/2025 External Device Data [facility] Provider, Abstract 12/09/2024 External Device Data [facility] Provider, Abstract 11/25/2024 External Device Data [facility] Provider, Abstract [...] Comments Blood Pressure 142/75 04/16/2024 2:39 PM NETWORK OPERATIONS ANALYST Pulse 83 04/16/2024 2:39 PM NETWORK OPERATIONS ANALYST Temperature 35.7 C (96.3 F) 04/16/2024 2:39 PM NETWORK OPERATIONS ANALYST Respiratory Rate 16 04/16/2024 2:39 PM NETWORK OPERATIONS ANALYST Oxygen Saturation 92% 04/16/2024 2:39 PM NETWORK OPERATIONS ANALYST Inhaled Oxygen Concentration - - Weight 61.2 kg (135 lb) 04/16/2024 2:39 PM NETWORK OPERATIONS ANALYST Height 149.9 cm (4' 11) 03/06/2023 10:22 AM NETWORK OPERATIONS ANALYST Body Mass Index 27.27 03/06/2023 10:22 AM NETWORK OPERATIONS ANALYST Plan of Treatment Health Maintenance Due Date Last Done Comments DTAP/TDAP/TD VACCINES (1 - Tdap) 09/07/1962 PNEUMOCOCCAL VACCINE 50+ YEARS (1 of 1 - PCV) 09/07/18 94 ZOSTER VACCINE (1 of 2) 09/07/1993 OSTEOPOROSIS SCREENING 09/07/2008 RSV VACCINE (60+ or ) (1 - 1-dose 75+ series) 09/07/2018 INFLUENZA VACCINE (#1) 2024 Insurance [facility] [id number] Care Teams Director Of Oncology Relationship Specialty Start Date End Date Lidia Maxwell MD [address] [place] [address] PCP - General Family Practice 03/06/23
[2025-02-25 18:58] LABS: Hematocrit 36.5 % (37.0-47.0); Hemoglobin 10.9 g/dL (12.0-15.0); Immature Granulocyte Percent A 0.4 % (0-0.5); Lymphocytes Absolute Auto 2.26 K/mm3 (0.9-3.2); Mean Corpuscular HGB Conc 29.9 g/dl (32-36); Mean Corpuscular Hemoglobin 29.2 pg (26-34); Mean Corpuscular Volume 97.9 fl (80-100); Nucleated Red Blood Cells Absolute Auto 0.000 K/mm3 (0.0-0.012); Nucleated Red Blood Cells Perc 0.0 % (0.0-0.2); Platelet Count Result 375 k/mm3 (150-375); Red Blood Count 3.73 M/mm3 (4.2-5.4); White Blood Count 8.5 K/mm3 (4.5-10.0)
[2025-02-25 19:03] LABS: Iron 95 ug/dL (37-170)
[2025-02-25 19:12] LABS: Percent Iron Saturation 39 % (20-50)
[2025-02-25 19:13] LABS: Alanine Aminotransferase 19 U/L (6-35); Albumin Level 4.4 g/dL (3.5-5.1); Alkaline Phosphatase 84 U/L (38-126); Anion Gap 9 mmol/L (4-12); Aspartate Amino Transferase 40 U/L (14-36); Bilirubin,Total 0.4 mg/dL (0.2-1.3); Blood Urea Nitrogen 31 mg/dL (7-17); Calcium 9.6 mg/dL (8.4-10.2); Carbon Dioxide 23 mmol/L (22-30); Chloride 109 mmol/L (98-107); Cholesterol 230 mg/dL (0-200); Estimated Glomerular Filt Rate 30; Glucose 86 mg/dL (65-110); HDL Direct 53 mg/dL; Potassium 5.2 mmol/L (3.4-5.0); Sodium 141 mmol/L (137-145); Total Protein 7.4 g/dL (6.3-8.2); Triglycerides 124 mg/dL (<150)
[2025-02-25 19:36] LABS: Thyroid Stimulating Hormone Reflex 3.320 uIU/mL (0.465-4.68)
[2025-02-25 19:46] LABS: Ferritin 92.30 ng/mL (11.1-264)
[2025-02-25 20:18] LABS: Vitamin B12 > 1000.0 pg/mL (239-931)
--- NOTE | 2025-02-26 15:03 | PCPTNOTE ---
Cancelled d/t schedule conflict per front office. AKS
== END 2025-02-25 12:33 | disposition home or self-care (01) ==
LOC: ANHGOSHLAB 12:33
PROVIDERS: PCP Family Medicine; Visit Provider Family Medicine
DX: D64.9 Anemia, unspecified (principal); Z00.00 Encounter for general adult medical examination without abnormal findings; E78.5 Hyperlipidemia, unspecified; I10 Essential (primary) hypertension; E55.9 Vitamin D deficiency, unspecified
CPT/HCPCS: 36415; 80053; 80061; 82306; 82607; 82728; 82746; 83540; 83550; 84443; 85025

== ENCOUNTER 2025-03-26 13:00 | Outpatient (RCR) | payer MEDICARE, SELFPAY ==
--- NOTE | 2025-01-28 16:19 | OPREHPOC ---
Outpatient Therapy Plan of Care This is a Multidisciplinary Plan of Care that may contain components documented by all disciplines (PT, OT, and ST.) PT Problem 1 PT Problem #1 Knowledge Deficit PT Goal 1 Goal / Goal Update Pt will perform return demo of balance and strengthening HEPs with 80% accuracy and indep with minimal cues. Target Visit 12 PT Problem 2 PT Problem #2 Impaired Balance PT Goal 1 Goal / Goal Update 1. Pt will demo improved TUG score to <20 seconds using appropriate AD. 2. Pt will improve SLS stability with at least 1 UE support without postural sway for 1 min. Target Visit 12 PT Problem 3 PT Problem #3 Impaired Gait PT Goal 1 Goal / Goal Update Pt will demo normalized gait pattern with equal stride length and weight distribution, improved heel strike bilaterally when ambulating >300ft with least restrictive AD. Target Visit 12
--- NOTE | 2025-01-28 16:19 | PTOPEVAL1 ---
Assessment and note entered by Le Vanegas, PT Evaluation Information Assessment Status Evaluation Diagnosis R29.6, R26.8 ICD-10 Condition Codes (PT) Repeated falls R29.6,Difficulty Walking R26.2, Abnormalities of gait and mobility R26.9,Weakness R53.1 Subjective Information Pt reports multiple falls, fell off the stairs, mostly fall forwards. States that she notice her R foot turning in when she is walking, she reports she had this since . She wants to get stronger and not fall anymore. Reported Pain Level Pain Score 0: Self Report Assessment PT Clinical Summary This 79 yr old female presents to therapy with c/o repeated falls and unsteadiness on her feet. She scored low on Tinetti Balance Assessment (15/28) and completed TUG at 36 seconds which indicates that she is in the high fall risk category. Pt demos notable deficits in single leg standing tests, BLE weakness R > L particularly R DF's, postural instability and impaired proprioception. She will benefit from skilled PT focused on static and dynamic balance, lower extremity strengthening, gait stability with appropriate AD, and fall prevention techniques to improve safety with indep household and community ambulation. Plan of Care Interventions Gait Training,Hot Pack/Cold Pack,Neuro Re- education,Patient/Caregiver Education,Therapeutic Activities,Therapeutic Exercise PT Services Indicated Yes Treatment Frequency and 2x/wk x 12 visits Duration These treatments will address the objective and functional deficits as defined above. The patient will be advanced safely and appropriately in order for the patient to progress towards his/her prior level of function. Additional exercises will be introduced and as well as a comprehensive home exercise program upon discharge, if needed, ?to ensure carryover of functional gains achieved in the clinic. This treatment plan has been reviewed and agreement upon by the patient.
--- NOTE | 2025-02-16 15:15 | PCPTNOTE ---
Cancelled d/t car issue, per front office. AKS
--- NOTE | 2025-03-02 14:16 | PCPTNOTE ---
Cancelled not feeling well today per front office. AKS
--- NOTE | 2025-03-09 14:50 | PCPTNOTE ---
Cancelled sick per front office. OMID
--- NOTE | 2025-03-23 12:45 | PCPTNOTE ---
Patient cancelled today's visit secondary to illness.
--- NOTE | 2025-03-26 14:51 | OPREHPOC ---
Outpatient Therapy Plan of Care This is a Multidisciplinary Plan of Care that may contain components documented by all disciplines (PT, OT, and ST.) PT Problem 1 PT Problem #1 Knowledge Deficit PT Goal 1 Goal / Goal Update Pt will perform return demo of balance and strengthening HEPs with 80% accuracy and indep with minimal cues. Target Visit 12 Progress Met PT Problem 2 PT Problem #2 Impaired Balance PT Goal 1 Goal / Goal Update 1. Pt will demo improved TUG score to <20 seconds using appropriate AD. 2. Pt will improve SLS stability with at least 1 UE support without postural sway for 1 min. Target Visit 12 Progress Met PT Problem 3 PT Problem #3 Impaired Gait PT Goal 1 Goal / Goal Update Pt will demo normalized gait pattern with equal stride length and weight distribution, improved heel strike bilaterally when ambulating >300ft with least restrictive AD. Target Visit 12 Progress Partially Met
--- NOTE | 2025-03-26 14:51 | PTOPDC ---
Assessment and note entered by Daniel Wu, PT Evaluation Information Assessment Status Discharge Diagnosis R29.6, R26.8 ICD-10 Condition Codes (PT) Repeated falls R29.6,Difficulty Walking R26.2, Abnormalities of gait and mobility R26.9,Weakness R53.1 Subjective Information Patient reports that since starting therapy she has noticed improvement in her strength and mobility. She is less dependent on assistance and pain is improved. No concerns at this time but was inquiring about resuming therapy in the future should she show any regression. Reported Pain Level Pain Score 0: Self Report Assessment PT Clinical Summary Patient significantly increased majority of objective measures and outcomes this date. Still has trouble with endurance and knee stability with long distances. Suitable for discharge to [facility] at this time. Plan of Care PT Services Indicated Yes
== END 2025-03-26 16:39 | disposition home or self-care (01) ==
LOC: ANHPT 13:00
PROVIDERS: PCP Family Medicine; Visit Provider Family Medicine
DX: R29.6 Repeated falls (principal); R26.81 Unsteadiness on feet
CPT/HCPCS: 97110; 97112; 97116; 97161; 97530; 97750